=== PATIENT | female | born 1955 | race Caucasian/White ===

== ENCOUNTER → 2016-11-06 | Outpatient (CLI) | payer OTHER ==
[2016-11-06 09:58] LABS: HEMOGLOBIN 14.4 gm/dl (12.3-15.3); RED BLOOD COUNT 4.88 M/UL (4.00-5.10)
== END ==
LOC: US 09:00
PROVIDERS: Otolaryngology
DX: D37.030 Neoplasm of uncertain behavior of the parotid salivary glands (principal)
CPT/HCPCS: 10022; 36415; 76536; 85027; 85610; 85730

== ENCOUNTER → 2021-03-30 | Outpatient (CLI) | payer OTHER | LOC: HEART 5 11:30 | DX: R06.02 Shortness of breath (principal); R94.2 Abnormal results of pulmonary function studies | CPT/HCPCS: 94060 ==

== ENCOUNTER → 2021-03-30 | Outpatient (CLI) | payer OTHER | LOC: US 10:15 | DX: K76.0 Fatty (change of) liver, not elsewhere classified (principal) | CPT/HCPCS: 76700 ==

== ENCOUNTER → 2022-01-26 | Outpatient (CLI) | payer MEDICARE ==
[~2022-01-26] MED LIST: ESTROVEN OTC; GLUCOPHAGE 500500 MG GT; LEVOTHYROXINE50 MC1 PO; LISINOPRIL30 MG PO; OMEPRAZOLE20 M1 PO; PAXIL30 MG PO
== END ==
LOC: KOH-I 16:00
DX: Z87.891 Personal history of nicotine dependence (principal); R91.8 Other nonspecific abnormal finding of lung field
CPT/HCPCS: 71271